=== PATIENT | female | born 1970 ===

== ENCOUNTER 2017-11-10 12:12 | Emergency (ER) | payer MEDICARE, MEDICAID ==
[2017-11-10 12:13] VITALS: BMI 26.1
[2017-11-10 12:29] VITALS: PULSE 72; TEMP 98.2
--- NOTE | 2017-11-10 13:22 | C.PDOC ---
History Of Present Illness 46yo female with history of seizure disorder, currently taking Lamictal and Trileptal, presents to ED for evaluation after a seizure episode prior to arrival. 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 Patient states she sat down on a chair and a woman next to her helped prop her up; patient denies any falls, head injury, tongue bite, incontinence. Patient states the seizure lasted a couple seconds and denies any post-ictal period. She currently denies any headache, weakness, or numbness. Patient does report she has some nasal congestion, which she attributes to allergies. Her LMP was in August and states since she had a uterine/ovarian surgery, her menstrual periods have been irregular. She offers no other medical complaints. Time Seen by Provider: 11/10/17 13:04 Chief Complaint (Nursing): Seizure History Per: Patient History/Exam Limitations: no limitations Recent Seizure Activity Began: Just Before Arrival Number Of Seizures: One Length Of Seizures (Duration): Seconds Additional History Per: Patient Past Medical History Reviewed: Historical Data, Nursing Documentation, Vital Signs Vital Signs: Last Vital Signs Temp 98.2 F 11/10/17 12:29 Pulse 72 11/10/17 14:04 Resp 16 11/10/17 14:04 BP 106/69 11/10/17 14:04 Pulse Ox 98 11/10/17 14:27 - Medical History PMH: Anemia, Seizures (LAST SEIZURE 1.5 YEARS AGO) Comment Only: Chronic Kidney Disease (CYST ON KIDNEY) Surgical History: No Surg Hx Family History: States: Unknown Family Hx - Social History Hx Tobacco Use: No Hx Alcohol Use: No Hx Substance Use: No - Immunization History Hx Tetanus Toxoid Vaccination: No Hx Influenza Vaccination: No Hx Pneumococcal Vaccination: No Review Of Systems Except As Marked, All Systems Reviewed And Found Negative. ENT: Positive for: Nose Congestion Musculoskeletal: Positive for: Other (left arm and leg shaking) Neurological: Negative for: Weakness, Numbness, Headache Physical Exam - Physical Exam Appears: Non-toxic, No Acute Distress Skin: Normal Color, Warm, Dry Head: Atraumatic, Normacephalic Eye(s): bilateral: Normal Inspection, PERRL, EOMI Nose: Normal Oral Mucosa: Moist Neck: Normal ROM, Supple Chest: Symmetrical Cardiovascular: Rhythm Regular Respiratory: Normal Breath Sounds, No Wheezing Gastrointestinal/Abdominal: Normal Exam Back: Normal Inspection Extremity: Normal ROM, No Tenderness, No Pedal Edema, No Deformity, No Swelling Neurological/Psych: Oriented x3 ED Course And Treatment - Laboratory Results Result Diagrams: 11/10/17 13:22 11/10/17 13:22 Lab Interpretation: Normal Urine POC: Negative O2 Sat by Pulse Oximetry: 98 (GOMEZ) Pulse Ox Interpretation: Normal Reevaluation Time: 14:19 Reassessment Condition: Improved Medical Decision Making Medical Decision Making: Plan: -- Labs -- EKG Disposition Counseled Patient/Family Regarding: Studies Performed, Diagnosis, Need For Followup - Disposition Referrals: [facility] [Outside] Disposition: HOME/ ROUTINE Disposition Time: 14:28 Condition: IMPROVED Instructions: Epilepsy in Adults Forms: [facility] (Ukrainian) - Clinical Impression Clinical Impression: Seizure disorder - Scribe Statement The provider has reviewed the documentation as recorded by the Scribe (Carrie Estrada) Provider Attestation: All medical record entries made by the Scribe were at my direction and personally dictated by me. I have reviewed the chart and agree that the record accurately reflects my personal performance of the history, physical exam, medical decision making, and the department course for this patient. I have also personally directed, reviewed, and agree with the discharge instructions and disposition.
[2017-11-10 13:27] LABS: BASO % 0.8 % (0.0-2.0); EOS # 0.1 K/uL (0.0-0.7); EOS % 2.5 % (0.0-4.0); LYMPH % 39.4 % (20.0-40.0); MEAN CELL VOLUME 89.8 fL (81.0-99.0); MEAN CORPUSCULAR HGB CONC 34.5 g/dL (33.0-37.0); MEAN PLATELET VOLUME 8.2 fL (7.2-11.7); MONO # 0.4 K/uL (0.0-0.8); MONO % 6.9 % (0.0-10.0); NEUT # 2.6 K/uL (1.8-7.0); NEUT % 50.4 % (50.0-75.0); NRBC % 0.1 % (0.0-2.0); RBC 4.19 Mil/uL (3.80-5.20); RED CELL DISTRIBUTION WIDTH 12.7 % (11.5-14.5); WHITE BLOOD COUNT 5.1 K/uL (4.8-10.8)
[2017-11-10 13:39] LABS: ALB/GLOB RATIO 1.2 (1.0-2.1); ALBUMIN 4.1 g/dL (3.5-5.0); ALT/SGPT 23 U/L (9-52); AST/SGOT 27 U/L (14-36); BLOOD UREA NITROGEN 15 mg/dL (7-17); CALCIUM 8.8 mg/dl (8.6-10.4); GFR AFRICAN-AMERICAN > 60; GFR NON-AFRICAN AMERICAN > 60
[2017-11-10 13:48] LABS: HCG,QUALITATIVE URINE NEGATIVE (NEGATIVE)
[2017-11-10 13:58] LABS: SQUAMOUS EPITHIAL 23 /hpf (0-5); URINE BILIRUBIN NEGATIVE (NEGATIVE); URINE BLOOD NEGATIVE (NEGATIVE); URINE CLARITY Hazy (Clear); URINE COLOR Yellow (YELLOW); URINE GLUCOSE (UA) NORMAL (Normal); URINE LEUKOCYTE ESTERASE NEG Leu/uL (Negative); URINE PROTEIN NEGATIVE (NEGATIVE); URINE UROBILINOGEN NORMAL mg/dL (0.2-1.0)
[2017-11-10 14:05] VITALS: BP 106/69; RESP 16
[2017-11-10 14:20] VITALS: O2SAT 98
--- NOTE | 2017-11-11 13:00 | CARD ---
APPROVED REPORT EKG Measurement Heart [id number] <Conclusion> Normal sinus rhythm Normal ECG
== END 2017-11-10 14:37 | disposition home or self-care (01) ==
LOC: C.ER 12:12
DX: G40.909 Epilepsy, unspecified, not intractable, without status epilepticus (principal)